=== PATIENT | male | born 1995 | race Caucasian/White ===

== ENCOUNTER 2017-07-02 21:52 | Emergency (ER) | payer BC, OTHER ==
[2017-07-02] MEDS ORDERED: Bupivacaine 0.5% 10 ML VIAL ONE (22:03)
[2017-07-02 22:34] LABS: #Basophils 0.1 thou/uL (0.0-0.2); #Eosinphils 1.1 thou/uL (0.0-0.7); #Lymphocytes 5.1 thou/uL (1.20-3.40); #Monocytes 0.9 thou/uL (0.11-0.59); #Neutrophils 5.3 thou/uL (1.40-6.50); %Basophils 0.9 % (0.0-1.0); %Eosinophils 8.9 % (0.0-10.0); %Lymphocytes 40.9 % (28.0-48.0); %Monocytes 7.5 % (0.0-4.0); Hematocrit 46.8 % (42.0-52.0); Mean Platelet Volume 6.9 fL (7.4-10.4); Red Blood Cell (RBC) Count 5.29 mill/uL (4.00-5.20); White Blood Cell (WBC) Count 12.6 thou/uL (4.8-10.8)
[2017-07-02] MEDS ORDERED: CEFAZOLIN 1 GM VIAL ONE (22:39)
[2017-07-02] MEDS ORDERED: Adacel (T-DAP) 0.5 ML VIAL ONE (22:39)
--- NOTE | 2017-07-02 22:40 | RAD ---
LEFT HAND TWO VIEWS: History: Left hand pain. FINDINGS/IMPRESSION: No acute fracture or dislocation is seen. No radiopaque foreign body is identified. POS: [facility]
[2017-07-02] MEDS ORDERED: CEFAZOLIN 1 GM in Sodium Chloride 0.9% 100 ML IVPB SCH (22:45)
[2017-07-02 22:57] LABS: ALT (SGPT) 43 U/L (8-55); AST (SGOT) 34 U/L (5-34); Alkaline Phosphatase 106 U/L (Less than 750); Anion Gap 16 mmol/L (10-20); BUN (Urea Nitrogen) 12 mg/dL (8.9-20.6); Bilirubin, Total 0.4 mg/dL (0.2-1.2); Calc. Creatinine Clearance 0 mL/min (70-130); Calcium 9.8 mg/dL (7.8-10.44); Carbon Dioxide 24 mmol/L (22-29); Chloride 104 mmol/L (98-107); Estimated GFR-MDRD Greater than 90; Globulin 3.5 g/dL (2.4-3.5); Protein, Total 7.9 g/dL (6.0-8.3)
[2017-07-03] MEDS ORDERED: Lidocaine 2% w/Epinephrine 1:200K 20 ML VIAL FS SCH (02:15)
== END 2017-07-03 03:43 | disposition home or self-care (01) ==
LOC: ERS 21:52
DX: S61.313A Laceration without foreign body of left middle finger with damage to nail, initial encounter (principal); J45.909 Unspecified asthma, uncomplicated; Z79.899 Other long term (current) drug therapy; W31.89XA Contact with other specified machinery, initial encounter; Y92.63 Factory as the place of occurrence of the external cause; Y99.0 Civilian activity done for income or pay
CPT/HCPCS: 12002; 80053; 85025; 90471; 90715; 96365; J0690; J3490; J7050

== ENCOUNTER 2017-07-13 08:56 | Day surgery (SDC) | payer OTHER ==
[2017-07-12 11:22] VITALS: BMI 34.1
[2017-07-13] MEDS ORDERED: CEFAZOLIN/Water 2 GM/20 ML SYRINGE ONE (11:06)
[2017-07-13 11:30] LABS: #Basophils 0.1 thou/uL (0.0-0.2); #Eosinphils 0.8 thou/uL (0.0-0.7); #Lymphocytes 3.7 thou/uL (1.20-3.40); #Monocytes 0.6 thou/uL (0.11-0.59); #Neutrophils 3.9 thou/uL (1.40-6.50); %Basophils 1.2 % (0.0-1.0); %Lymphocytes 40.5 % (28.0-48.0); %Monocytes 6.7 % (0.0-4.0); Hematocrit 48.1 % (42.0-52.0); Mean Platelet Volume 6.5 fL (7.4-10.4); Red Blood Cell (RBC) Count 5.39 mill/uL (4.00-5.20); White Blood Cell (WBC) Count 9.2 thou/uL (4.8-10.8)
[2017-07-13] MEDS ORDERED: Betamet Acet/Betamet Na Ph 30 MG/5 ML VIAL ONE (12:12)
[2017-07-13] MEDS ORDERED: Bupivacaine PF 0.5% 30 ML VIAL ONE (12:12)
[2017-07-13] MEDS ORDERED: Fentanyl 100 MCG/2 ML VIAL ONE ×2 (12:17→12:49)
[2017-07-13] MEDS ORDERED: Midazolam HCl 2 mg/2 ml Vial ONE (12:17)
[2017-07-13] MEDS ORDERED: diphenhydrAMINE 50 MG/ML VIAL ONE (12:41)
[2017-07-13] MEDS ORDERED: Metoclopramide HCl 10 MG/2 ML VIAL ONE (12:41)
[2017-07-13] MEDS ORDERED: Dexamethasone 20 MG/5 ML VIAL ONE (12:41)
[2017-07-13] MEDS ORDERED: Ondansetron HCl/PF 4 MG/2 ML Vial ONE (12:41)
[2017-07-13] MEDS ORDERED: Propofol 200 MG/20 ML VIAL ONE (12:41)
[2017-07-13] MEDS ORDERED: Ketorolac Tromethamine 30 MG/ML VIAL ONE ×2 (12:41→14:19)
[2017-07-13] MEDS ORDERED: Bacitracin Zinc Ointment 30 gm TUBE ONE (14:11)
--- NOTE | 2017-07-14 07:53 | OP ---
DATE OF SURGERY: 07/13/2017 PREOPERATIVE DIAGNOSES: Left long finger full-thickness skin loss, 3 x 1 cm. FINDINGS: Left long finger full-thickness skin loss, 3 x 1 cm. POSTOPERATIVE DIAGNOSES: 1. Open wound with wound edge necrosis. 2. Open wound with appoximately 3 cm long full-thickness skin loss. FINDINGS: After debridement, full-thickness skin loss at 3 cm in length and 1-1.2 cm at its widest point, but mostly approximately 1 to 0.8 cm in width. PROCEDURES PERFORMED: 1. Debridement of wound intermediate depth, [address], down to fascia, but not violating tendon sheath. No gross infection found. 2. Irrigation of wound with 500 mL normal saline . 3. Closure of wound with harvested 3 x 1.2 cm full-thickness skin loss defatted from the ipsilatera l antecubital fossa bolstering this. COMPLICATIONS: None. INDICATION: The patient with a wound that was almost a-week-old, came to our clinic. It was clear once we removed the early eschar than he had an area of almost 3 cm in length that did not have any dermis or epidermis, only fat. This would not heal, it is too big area to expect the skin to heal w ithout dermis, so we scheduled the procedure listed above. The patient was consented. DESCRIPTION OF PROCEDURE: After successful general endotracheal anesthesia, by Mr. Chiki Villagran from [facility], limb was prepped and draped. We then gave 1 mL metacarpophalangeal joint leve l block at the left metacarpophalangeal joint of the index with long finger and then performed 4 mL block just proximal to where the skin graft be harvested in the antecubital fossa. Then, with the i nflated tourniquet at 250 mmHg pressure and after exsanguination, we then unroofed the dermis, debri ded it back to it was all bleeding when the tourniquet was deflated 4 minutes later and cleaned it o f any denuded tissue. We then irrigated the epidermis and dermis with 2 liters of normal saline and Pulsavac pressure. Finally, we debrided approximately a 3 mm rim of the central portion of the long finger, left ulnar aspect and then expected this that it was completely clean. Deflated the tourniquet and had excelle nt of circulation to all aspects of the flap to include the zone III region. We then turned attention to the previous anesthetized with local antecubital fossa, harvested a 3 cm long x 1.2 cm wide full-thickness skin graft without complication. Moist dressing was placed while we defatted it and then placed it in appropriate stretch using 6 sutures simple through it and to t he surrounding subcutaneous skin or the nailbed with 4-0 nylon. The defatted graft was then sutured in all six spots to cause it to be stretched to appropriate tension to cover the wounds. Once this was done, we ran a 6-0 chromic around it in between the 6 areas of the 4-0 nylon. We then took pola itracin, Adaptic, and mineral oil-soaked cotton balls after making 2 pie-type crust holes in the vania ter of the graft and bolstered this appropriately. Then, we turned our attention to the antecubital fossa area where now the hemostasis was obtained at this wound, running 4-0 Monocryl was used for s ubcutaneous closure of the deep dermis and epidermis reapproximated with 4-0 nylon in interrupted si mple pattern. The bulky dressing was applied at both sites and the patient prepared to leave the ho spital without evidence of anesthetic or operative complication.
== END 2017-07-13 16:10 | disposition home or self-care (01) ==
LOC: SDC 08:56
PROVIDERS: ATTEND Orthopaedic Surgery Hand Surgery
PROC: 0JBK0ZZ Excision of Left Hand Subcutaneous Tissue and Fascia, Open Approach (ICD-10-PCS; principal; 2017-07-13)
PROC: 0HRGX73 Replacement of Left Hand Skin with Autologous Tissue Substitute, Full Thickness, External Approach (ICD-10-PCS; principal; 2017-07-13)
DX: S61.203A Unspecified open wound of left middle finger without damage to nail, initial encounter (principal); J45.909 Unspecified asthma, uncomplicated
CPT/HCPCS: 85025; 85652; 96372; J0131; J0702; J1100; J1200; J1885; J2250; J2405; J2704; J2765; J3010; S0020